=== PATIENT | female | born 1995 | race Caucasian/White ===

== ENCOUNTER 2017-02-11 11:25 | Emergency (ER) | payer BC, OTHER ==
[~2017-02-11] VITALS: Ht 177.8 cm; Wt 74.5 kg
[2017-02-11 11:28] VITALS: BP 123/78; TEMP 36.7; Ht 177.8 cm; Wt 74.5 kg
[2017-02-11] MEDS ORDERED: HYDR1CAP85 PO (11:37)
[2017-02-11] MEDS ORDERED: BCPILLS PO (11:37)
[2017-02-11] MEDS ORDERED: BUPR-83 PO (11:37)
[2017-02-11] MEDS ORDERED: BUSP15TA70 PO (11:37)
[2017-02-11] MEDS ORDERED: ESCI10TA17 PO (11:37)
[2017-02-11] MEDS ORDERED: PROPARACAINE HCL 0.5% OP SOLN 15 ML BTL ONE (12:52)
--- NOTE | 2017-02-11 13:33 | EMERGENCY ROOM VISIT NOTE ---
ED Visit Note First contact with patient: 12:37 CHIEF COMPLAINT: Floaters and left eye discomfort 2 weeks HISTORY OF PRESENT ILLNESS: Patient is a 21-year-old white female who presents emergency Department accompanied by her boyfriend for evaluation of left eye symptoms 2 weeks. She wears glasses for myopia. She has had date lenses but has not worn them for 6 months. She last saw an curtain feller blindstitch one year ago for refraction. She states that her symptoms started with an aching in her left eye. She describes it as feeling like she "strained" her eye. She also began to intermittently notices seeing "spots", then a "black band" through her vision. She notes her vision is a little bit blurry and feels like everything has a "metallic coating" over it. She denies any generalized headache, but reports just some aching in the eye. She tried using acetaminophen. She states that it hurts to lay on her left side due to the pressure. She looked into calling her curtain feller blindstitch yesterday but the office was closed, so she presented to a [facility] facility today for evaluation, but they did not have the ability to perform an eye exam and thus sent her to the emergency department. She did not have any symptoms in the right eye. There was no trauma or injury to the eye. She denies any photophobia, drainage or discharge. he vision has not been decreased over all. REVIEW OF SYSTEMS: Review of systems as per HPI. All other systems reviewed were negative. At least 6 systems reviewed. PMH: Electronic medical records are reviewed and summarized as above/below. See Problem List. SOCIAL HISTORY: Patient lives at home. Employed. Nonsmoker. PHYSICAL EXAM: Vital Signs: Reviewed Nurse's notes. VISUAL ACUITY: 20/25 in the right eye, 20/50 in the left eye with glasses. Intraocular pressures measured right eye averaged 15, left eye 13. GENERAL: CONSTITUTIONAL: Patient is a well-appearing 21-year-old white female who is awake and alert and in no acute distress. EARS: Tympanic membranes intact, not inflamed, have normal contour. External canals clear. THROAT: No pharyngeal injection, exudates, or tonsillar hypertrophy. Airway is patent. EYES: The pupils are round, equal, and react to light. EOMs are full. Conjunctivae are white, sclera are pink. No drainage or discharge is noted. Funduscopic exam is unremarkable. No foreign body was seen embedded in the cornea. The cornea was clear and no hyphema was seen. EMERGENCY DEPARTMENT COURSE: The patient was seen and evaluated as above. Her presentation was reviewed with attending physician. She presents the emergency department for evaluation of a left-sided visual disturbance over the last 2 weeks. Differential diagnoses entertained included trauma, hyphema, corneal abrasion, corneal ulcer, infectious process, retinal detachment, vitreous detachment, lens displacement, among others. Patient was reviewed with Dr. Fernando, who felt that the patient can be seen in the office in follow-up on Monday. This was discussed with the patient and she was in agreement. She was educated on the worrisome signs or symptoms for which she should return to the emergency department. She was discharged home in good condition. Problem List Medical Problems: (1) Asthma Status: Chronic Surgical Problems: (1) H/O wisdom tooth extraction Status: Resolved (2) Hx of tonsillectomy Status: Resolved (3) Hx of tympanostomy tubes Status: Resolved Current/Historical Medications Scheduled Control Pills ( Control Pills), 1 TAB PO DAILY Bupropion (Wellbutrin), Unknown Dose PO BID Buspirone Hcl (Buspar), Unknown Dose PO BID Escitalopram (Lexapro), 10 MG PO DAILY Hydroxyzine Pamoate (Vistaril), 25 MG PO DAILY Allergies Coded Allergies: No Known Allergies (Unverified , 02/11/17) Vital Signs Date Time Temp Pulse Resp B/P Pulse Ox O2 Delivery O2 Flow Rate FiO2 02/11/17 13:48 78 16 97 02/11/17 13:15 76 16 98 02/11/17 11:28 36.7 81 18 123/78 97 Room Air Departure Information Impression Primary Impression: Visual disturbance of one eye Referrals Sugey Eric DO (PCP) Roni Fernando M.D. Patient Instructions My [facility] Additional Instructions Continue current medications. Follow-up with ophthalmology on Monday. Call their office to make an appointment. Return to the emergency department for eye pain or changes in vision.
[2017-02-11 13:48] VITALS: PULSE 78; O2SAT 97
== END 2017-02-11 13:40 | disposition home or self-care (01) ==
LOC: C.EDB 11:27 → C.EDD 13:40
DX: H53.9 Unspecified visual disturbance (principal); J45.909 Unspecified asthma, uncomplicated; Z79.3 Long term (current) use of hormonal contraceptives; Z79.899 Other long term (current) drug therapy

== ENCOUNTER → 2017-02-22 | Outpatient (CLI) | payer BC ==
[~2017-02-22] MED LIST: BCPILLS PO; BUPR-83 PO; BUSP15TA70 PO; ESCI10TA17 PO; GADAVIST IV PRN; HYDR1CAP85 PO
--- NOTE | 2017-02-22 15:40 | DIAGNOSTIC IMAGING REPORT ---
MRI OF THE BRAIN COMBO CLINICAL HISTORY: Optic neuritis. COMPARISON STUDY: No priors. TECHNIQUE: MRI of the brain was performed utilizing various T1 and T2-weighted sequences in the axial, sagittal, and coronal planes. Contrast-enhanced sequences were acquired following the administration of 7 cc of Gadavist. FINDINGS: Brain parenchyma: There are numerous T2 hyperintense lesions identified within the subcortical and periventricular white matter. Several of these are located perpendicular to the ventricles, and the appearance is highly concerning for demyelinating disease such as multiple sclerosis. Several of these lesions demonstrate postcontrast enhancement. The largest is seen within the periventricular white matter superior to the left lateral ventricle on axial image #16. At least 8 additional enhancing lesions are present. There is no hemorrhage or mass effect. There is no restricted diffusion to suggest acute ischemia. A 2.3 x 1.1 cm arachnoid cyst is noted in the anterior right temporal fossa. Mack-white matter differentiation is preserved. No extra-axial fluid collection is seen. The cerebellar tonsils are normal in configuration. Ventricles, sulci, and cisterns: Normal in configuration. Pituitary and sella: Unremarkable. Intracranial vasculature: Normal flow voids are maintained at the skull base. Orbits: The bony orbits are grossly intact. There is abnormal FLAIR signal suggested within the left optic nerve on the coronal sequence. This may correspond to the reported history of optic neuritis. Orbital contents are otherwise normal in appearance. Sinuses and mastoids: Clear. Calvarium: Unremarkable. Cervical cord: Partially visualized cervical spinal cord is normal in morphology and signal intensity. IMPRESSION: 1. There are numerous T2 hyperintense lesions seen throughout the subcortical and periventricular white matter. The appearance and distribution is typical appearance for multiple sclerosis. Numerous lesions (approximately 10) demonstrate postcontrast enhancement suggesting active demyelination. Other etiologies such as infection or neoplasm are considered much less likely given the clinical history. Posttreatment follow-up MRI is recommended for reassessment. 2. Findings suggest left-sided optic neuritis. Clinical correlation will be required. 3. There is no hemorrhage, mass effect, or evidence of acute ischemia. 4. A small arachnoid cyst is incidentally noted in the right anterior temporal fossa. Electronically signed by: Ricky Jensen M.D. 02/22/2017 3:39 PM Dictated Date/Time: 02/22/2017 3:27 PM
== END | disposition home or self-care (01) ==
LOC: C.MRI 13:35
PROVIDERS: ATTEND Ophthalmology
DX: H46.9 Unspecified optic neuritis (principal)

== ENCOUNTER 2018-01-06 03:36 | Inpatient (IN) | payer BC, OTHER ==
[~2018-01-06] VITALS: Ht 177.8 cm; Wt 89.1 kg
[~2018-01-06 03:36] MED LIST changes: -GADAVIST IV PRN
[2018-01-06] MEDS ORDERED: LACTATED RINGER'S 1000ML 1,000 ML IV PRN (04:12)
[2018-01-06] MEDS ORDERED: LACTATED RINGER'S 1000ML 1,000 ML IV SCH ×2 (04:12→08:00)
[2018-01-06 04:25] VITALS: Ht 177.8 cm; Wt 89.1 kg
[2018-01-06] MEDS ORDERED: SERT50TA PO (04:29)
[2018-01-06] MEDS ORDERED: SERT25TA PO (04:29)
[2018-01-06] MEDS ORDERED: PRENTAB65 PO (04:29)
--- NOTE | 2018-01-06 04:34 | Progress Note ---
Progress Note Date of Service Jan 06, 2018. Progress Note Admit Note 20 F P0000 at 38.3 weeks admitted in active labor. GBS is negative. Cervix 8-9 /100/-1/vertex/membranes intact. Will admit and anticipate normal delivery.
[2018-01-06 04:37] LABS: HEMOGLOBIN 11.7 g/dL (12.0-16.0); MEAN CELL VOLUME 89.9 fL (80-100); MEAN PLATELET VOLUME 12.2 fL (7.4-10.4); PLATELET COUNT 183 K/uL (130-400); RED CELL DISTRIBUTION WIDTH CV 12.5 % (11.5-14.5); RED CELL DISTRIBUTION WIDTH SD 40.8 fL (36.4-46.3); WHITE BLOOD COUNT 14.74 K/uL (4.8-10.8)
[2018-01-06] MEDS ORDERED: BUPIVACAINE 0.25% 30 ML VIAL ONE (04:38)
[2018-01-06] MEDS ORDERED: EpHEDrine SULFATE INJ 50 MG/ML AMP ONE (04:38)
[2018-01-06] MEDS ORDERED: FENTANYL CITRATE INJ 50 MCG/1 ML 2 ML VIAL ONE (04:39)
[2018-01-06] MEDS ORDERED: FENTANYL 2MCG/ML ROPIV 1.25MG/ML 100ML BAG EPI ONE (04:40)
[2018-01-06 05:33] LABS: MEAN CORPUSCULAR HGB CONC 34.4 g/dl (32-36)
[2018-01-06] MEDS ORDERED: LACTATED RINGER'S 1000ML 500 ML IV PRN (06:18)
[2018-01-06] MEDS ORDERED: NALOXONE HCL INJ 1 MG in SODIUM CHLORIDE 0.9% 1000ML 1,000 ML IV PRN (06:18)
[2018-01-06] MEDS ORDERED: NALOXONE HCL INJ 0.4 MG/1 ML VIAL/CARP IV PRN (06:30)
[2018-01-06] MEDS ORDERED: DiphenhydrAMINE HCL 50 MG/ML VIAL IV PRN (06:30)
[2018-01-06] MEDS ORDERED: EpHEDrine SULFATE INJ 50 MG/ML AMP IV PRN (06:30)
[2018-01-06] MEDS ORDERED: NALBUPHINE HCL INJ 10 MG/ML AMP IV PRN (06:30)
[2018-01-06] MEDS ORDERED: FENTANYL 2MCG/ML ROPIV 1.25MG/ML 100ML BAG EPI PRN (06:30)
--- NOTE | 2018-01-06 06:50 | Progress Note ---
Progress Note Date of Service Jan 06, 2018. Progress Note cervix fully dilated/100/0 AROM clear fluid FHT Cat 1 will start to push
[2018-01-06] MEDS ORDERED: OXYTOCIN 30 UNITS/500ML NSS IV ONE (06:56)
[2018-01-06] MEDS ORDERED: LANOLIN OINT EXT PRN (07:30)
[2018-01-06] MEDS ORDERED: VARICELLA VIRUS VACCINE LIVE 1 VIAL SQ. ONE (07:30)
[2018-01-06] MEDS ORDERED: OXYTOCIN 30 UNITS/500ML NSS IV PRN (07:30)
[2018-01-06] MEDS ORDERED: MEASLES, MUMPS & RUBELLA VIRUS VIAL SQ. ONE (07:30)
[2018-01-06] MEDS ORDERED: ACETAMINOPHEN 325 MG TAB PO PRN (07:30)
[2018-01-06] MEDS ORDERED: DIPHTHERIA/TETANUS/PERTUSSIS 0.5 ML SYR/VIAL IM. ONE (07:30)
[2018-01-06] MEDS ORDERED: SUPERCREAM 0.870 % 15GM JAR EXT PRN (07:30)
[2018-01-06] MEDS ORDERED: HYDROCORTISONE ACETATE 25 MG SUPP PR PRN (07:30)
[2018-01-06] MEDS ORDERED: BENZOCAINE 20% AER SPR 82.5 GM CAN EXT PRN (07:30)
--- NOTE | 2018-01-06 07:36 | Vaginal Delivery Summary ---
Vaginal Delivery Summary live male over intact perineum NANCY with Apgars 8/9 weight pending. Delayed cord clamping with cord blood obtained followed by spontaneous delivery of intact placenta. No tears. EBL 250 ml. Final sponge and instrument count are correct. Mom and baby stable.
--- NOTE | 2018-01-06 08:20 | Anesthesia Procedure Note ---
Anesthesia Epidural Removal Nt Date & Time Jan 06, 2018 at 08:19 Vital Signs Pain Intensity: 0.0 Notes Mental Status: alert / awake / arousable, participated in evaluation Nausea / Vomiting: adequately controlled Pain: adequately controlled Airway Patency, RR, SpO2: stable & adequate BP & HR: stable & adequate Hydration State: stable & adequate Neuraxial Anesthesia: was administered Anesthetic Complications: no major complications apparent, pt satisfied with anesthetic care Epidural: removed without complications, with tip intact
[2018-01-06] MEDS: PRENATAL VITAMIN TAB PO SCH (09:07)
[2018-01-06] MEDS: DOCUSATE SODIUM 100 MG CAP PO SCH ×2 (09:07→19:40)
[2018-01-06] MEDS: FERROUS SULFATE 325 MG TAB PO SCH (09:13)
[2018-01-06 11:00] VITALS: BP 116/68; PULSE 72; TEMP 36.8
[2018-01-06] MEDS: IBUPROFEN 600 MG TAB PO PRN ×2 (13:04→19:40)
[2018-01-06 16:03] VITALS: BP 97/67; PULSE 81; TEMP 36.5
[2018-01-06 19:30] VITALS: BP 118/69; PULSE 80; TEMP 36.9
[2018-01-06] MEDS ORDERED: PSEUDOEPHEDRINE HCL 30 MG TAB PO PRN (20:15)
[2018-01-06] MEDS: OXYMETAZOLINE HCL 0.05% NA SPR 15 ML BTL NAE PRN (21:43)
[2018-01-06 23:25] VITALS: BP 114/66; PULSE 69; TEMP 36.6; O2SAT 100
[2018-01-07 04:00] VITALS: BP 126/78; PULSE 88; TEMP 37; O2SAT 97
[2018-01-07 06:17] LABS: HEMATOCRIT 28.7 % (37-47); HEMOGLOBIN 9.7 g/dL (12.0-16.0)
[2018-01-07] MEDS: PRENATAL VITAMIN TAB PO SCH (07:43)
[2018-01-07] MEDS: DOCUSATE SODIUM 100 MG CAP PO SCH ×2 (07:43→19:27)
[2018-01-07] MEDS: FERROUS SULFATE 325 MG TAB PO SCH (07:43)
[2018-01-07 08:35] VITALS: BP 117/71; PULSE 93; TEMP 36.7; O2SAT 99
[2018-01-07] MEDS: IBUPROFEN 600 MG TAB PO PRN ×2 (08:46→16:16)
--- NOTE | 2018-01-07 10:07 | OB/GYN Progress Note ---
RIDES SUPERVISOR Progress Note Date of Service Jan 07, 2018. Subjective conversation w/ patient, physical exam Ambulation: ambulating normally Voiding: no voiding problems Passing Gas: Yes Diet Tolerance: Regular Diet Lochia: Moderate Feeding Type: Breast Feeding Review of Systems Constitutional: No fever, No chills, No sweats, No weight loss, No weakness, No fatigue, No problem reported Respiratory: No cough, No sputum, No wheezing, No shortness of breath, No dyspnea on exertion, No dyspnea at rest, No hemoptysis, No problem reported Cardiac: No chest pain, No orthopnea, No PND, No edema, No claudication, No palpitations, No problem reported Breast: No see HPI, No breast lump, No change in shape, No nipple discharge, No breast pain, No problem reported Abdomen: No pain, No nausea, No vomiting, No diarrhea, No constipation, No GI bleeding, No problem reported Female : No see HPI, No dysuria, No urinary frequency, No hematuria, No incontinence, No abnormal vaginal bleeding, No vaginal discharge, No problem reported Objective Vital Signs Date Time Temp Pulse Resp B/P (MAP) Pulse Ox O2 Delivery O2 Flow Rate FiO2 01/07/18 04:00 37.0 88 18 126/78 (94) 97 Room Air 01/06/18 23:25 100 Room Air 01/06/18 23:25 36.6 69 20 114/66 (82) 100 Room Air 01/06/18 19:30 36.9 80 18 118/69 (85) Room Air 01/06/18 16:09 Room Air 01/06/18 16:03 36.5 81 16 97/67 (77) Room Air 01/06/18 11:00 Room Air 01/06/18 11:00 36.8 72 20 116/68 (84) Room Air Physical Exam General Appearance: WELL-APPEARING, WD/WN, NO APPARENT DISTRESS Respiratory/Chest: chest non-tender, lungs clear, normal breath sounds Cardiovascular: regular rate, rhythm, no edema, no gallop Abdomen: normal bowel sounds, non tender, soft Fundus: Firm Extremities: normal range of motion, non-tender, normal inspection Laboratory Results Last 24 Hours Test 01/07/18 05:53 Hemoglobin 9.7 g/dL Hematocrit 28.7 % Assessment and Plan Day Number: 1 Continue Routine Care: PPD #1 pt doing well pt wishes to go home today d/c home
[2018-01-07] MEDS ORDERED: FRRS300 PO (10:10)
[2018-01-07] MEDS ORDERED: MTR600X PO (10:10)
--- NOTE | 2018-01-07 10:11 | Discharge Instructions ---
Discharge Instructions Date of Service Jan 07, 2018. Admission Reason for Admission: LABOR Discharge Discharge Diagnosis / Problem: Discharge Goals Goal(s): Routine recovery after delivery Activity Recommendations Activity Limitations: as noted below ACTIVITY RECOMMENDATIONS: * Gradual return to full activity over the next 2-3 weeks. * No lifting - nothing heavier than baby over the next 2-3 weeks. * Do not engage in vigorous exercise, sexual activity or sports until cleared by your physician. * Do not drive or operate any motorized equipment until cleared by your physician. * You may shower/bathe daily. BREAST CARE: If you are not breast feeding: * Wear a supportive bra 24 hours a day for one to two weeks. * Avoid stimulating your breasts and nipples as much as possible during the first few weeks after delivery. * When taking a shower, have the warm water hit your back, not breasts. * When your breasts feel full, apply ice packs. Usually three to four times a day helps ease the discomfort. * Take a mild pain medication (Tylenol/Motrin) when you are uncomfortable. If breast feeding: * Use breast milk to lubricate nipples. Lansinoh cream may be used for sore nipples. You do not need to remove cream prior to breast feeding. If using a different brand of cream, check the label for directions regarding removal of cream prior to nursing. * Wear a supportive bra. * If having problems with breasts or breast feeding, call a pci security consultant or your health care provider. EPISIOTOMY CARE: After delivery, if you have an episiotomy (stitches), the following steps will ease discomfort and aid healing. * For the first 24 hours after delivery, place ice packs next to your episiotomy to help reduce swelling. * After the first 24 hour-period, sitz baths, either portable or in the tub, are suggested. A shower with a shower arm sprayed over the episiotomy may be comforting. * Meri care should be done after each voiding and bowel movement. Squirt warm water from a plastic bottle over the perineum (region of the body between the anus and urinary opening) and pat dry. * Use Dermoplast to ease discomfort. Shake container. [place] directly over the episiotomy. * Place a Tucks on a clean sanitary pad next to your episiotomy. OVER THE COUNTER MEDICATION: * For discomfort or pain, you may use Acetaminophen (Tylenol), Ibuprofen (Advil ), or Naproxen (Aleve) following the package directions. * For constipation you may use Colace following the package directions. SPECIAL CARE INSTRUCTIONS: When you are discharged from the hospital, it is important for you to follow the instructions listed below: * During the first week at home, you should be able to care for yourself and your baby. In addition, the usual light household activities are encouraged. * Limit your activities to the way you feel. Do not try to clean the house or move furniture. Be sensible. * If you actively engage in sports and have done so up until the time of your delivery, you may resume these activities as soon as you feel able. This may take up to one month or even longer. Use good judgment. * Continue to take your vitamins for at least six weeks after the of your baby. * Your diet need not be limited unless you were on a special diet before your delivery. Breast-feeding mothers need around 2500 calories per day and at least 64-80 ounces of fluid per day (8 to 10 glasses). * You should eat foods from the four major food groups. Crash diets or fad diets are to be avoided. Eating lean meats, fresh fruits and vegetables, low-fat dairy products, high fiber foods and a regular exercise program, will help you get back to your pre- weight without putting your health at risk. * Constipation is sometimes a problem after delivery. Take a mild laxative as needed. If breast feeding, Milk of Magnesia is acceptable to use. You may use a suppository or Fleets enema if no episiotomy. * A daily shower or tub bath is suggested. Be sure to thoroughly and gently dry the perineum. * A bloody vaginal discharge will usually continue until around four weeks post . A small amount of bleeding may continue for as long as six weeks. Vaginal discharge changes from the bright red bleeding after delivery to pink then brownish and finally yellowish-pink before becoming white and disappearing. * Bleeding may increase with activity. Your first period may come in 4-8 weeks. If you are breast feeding, your period may be delayed even longer. * [place] (sex) can begin whenever both you and your partner feel comfortable and do not have any form of genital infection. It is recommended that you wait until after your return appointment and discuss with your physician. If you have questions, please talk to your health care practitioner. A condom should be used to prevent infection and . * Foreplay, gentle intercourse and lubrication is very important the first several times to prevent pain. A water-based lubricant such as K-Y jelly or Astroglide may be used. * Tampons may be used six weeks after delivery. * Douching should be avoided for 6 weeks after delivery. * If you have RH negative blood and your baby is RH positive, you will receive RHOGAM by injection prior to discharge. The nurse will give you a card to keep with you that has the date and place that you received RHOGAM after delivery. * During your care, you had a Rubella screen done to check for the presence of rubella antibodies in your blood. If your test was negative, you will receive a Rubella vaccine prior to discharge. This vaccine may cause a fever, soreness at the injection site and flu-like symptoms. If these symptoms persist, notify your health care practitioner. is not advised for three months after a Rubella vaccine. There is a higher chance of having a baby with defects if conceived within three months of getting the vaccine. * If you were discharged 24 hours from delivery or before 48 hours: Visiting nurses will come to your home 48 hours after discharge to assess you and your baby. The visiting nurse will meet with you while you are in the hospital to arrange a time and get directions to your home. * Verbalizes understanding of car seat law as reviewed with patient nursing. * Car Seat hand-out given and reviewed with patient by nursing. * Shaken baby information reviewed with patient by nursing. Call you doctor if: * Heavy bleeding (saturating several pads an hour) or passing clots the size of your fist. * A fever >101 degrees F (38.3 degrees C) on two occasions four hours apart and/or chills. * Unusual pain in the pelvic or vaginal areas. * "Baby Blues" lasting longer than two weeks. If you have any questions or concerns, call your health care practitioner at . FOLLOW-UP VISIT: * Please call the office at to schedule a 6 week examination. It is important you keep this appointment. * It is important for you to make arrangements for either yearly or twice yearly check-ups thereafter. . Current Hospital Diet Patient's current hospital diet: Regular OB Diet Discharge Diet Recommended Diet: Regular Diet Pending Studies Studies pending at discharge: no Medical Emergencies . Who to Call and When: Medical Emergencies: If at any time you feel your situation is an emergency, please call 911 immediately. . Non-Emergent Contact Non-Emergency issues call your: Specialist . . "Provider Documentation" section prepared by Kenton David. .
[2018-01-07 15:20] VITALS: BP 113/69; PULSE 82; TEMP 36.7; O2SAT 99
[2018-01-07] MEDS: OXYMETAZOLINE HCL 0.05% NA SPR 15 ML BTL NAE PRN (15:46)
[2018-01-07] MEDS ORDERED: BISACODYL 5 MG TABEC PO SCH (20:00)
[2018-01-08] VITALS: BP 128/78; PULSE 97; TEMP 36.8; O2SAT 99
[2018-01-08] MEDS ORDERED: BISACODYL 10 MG SUPP PR PRN (07:00)
[2018-01-08 07:20] VITALS: BP 108/68; PULSE 82; TEMP 36.4; O2SAT 96
[2018-01-08] MEDS: FERROUS SULFATE 325 MG TAB PO SCH (07:28)
[2018-01-08] MEDS: OXYMETAZOLINE HCL 0.05% NA SPR 15 ML BTL NAE PRN (07:28)
[2018-01-08] MEDS: PRENATAL VITAMIN TAB PO SCH (07:28)
[2018-01-08] MEDS: IBUPROFEN 600 MG TAB PO PRN (07:29)
[2018-01-08] MEDS: DOCUSATE SODIUM 100 MG CAP PO SCH (07:29)
[2018-01-08] MEDS ORDERED: MISC-1040 EP (12:08)
--- NOTE | 2018-01-08 12:09 | OB/GYN Progress Note ---
SECURITY OFFICER Progress Note Date of Service Jan 08, 2018. Subjective conversation w/ patient, physical exam Ambulation: ambulating normally Voiding: no voiding problems Passing Gas: Yes Diet Tolerance: Regular Diet Lochia: Small Feeding Type: Breast Feeding Objective Vital Signs Date Time Temp Pulse Resp B/P (MAP) Pulse Ox O2 Delivery O2 Flow Rate FiO2 01/08/18 07:20 36.4 82 16 108/68 (81) 96 Room Air 01/08/18 07:20 96 Room Air 01/08/18 00:00 36.8 97 18 128/78 (95) Room Air 01/08/18 00:00 99 Room Air 01/07/18 15:20 36.7 82 18 113/69 (84) 99 Room Air 01/07/18 15:20 Room Air Physical Exam General Appearance: WELL-APPEARING, NO APPARENT DISTRESS Abdomen: non tender, soft Fundus: Firm Extremities: non-tender, normal inspection, no pedal edema Assessment and Plan Post- Day Number: 2 Continue Routine Care: discharged
[2018-01-08 13:42] VITALS: BP_DIAS 68; PULSE 82; TEMP 36.4
== END 2018-01-08 14:40 | disposition home or self-care (01) | DRG 775 ==
LOC: C.OPB 03:36 → C.LD 03:36 → C.OPB 04:14 → C.OBG 10:16
PROVIDERS: ADMIT Obstetrics & Gynecology; ATTEND Obstetrics & Gynecology
PROC: 10E0XZZ Delivery of Products of Conception, External Approach (ICD-10-PCS; principal; 2018-01-06)
DX: O80 Encounter for full-term uncomplicated delivery (principal); Z3A.38 38 weeks gestation of pregnancy; Z37.0 Single live birth